=== PATIENT | male | born 1970 | race Caucasian/White ===

== ENCOUNTER 2018-05-05 16:29 | Emergency (ER) | payer OTHER ==
[~2018-05-05] VITALS: Ht 162.6 cm; Wt 97.2 kg
[2018-05-05 16:33] VITALS: BP 158/105
--- NOTE | 2018-05-05 16:40 | NUR ---
PT WHEEL CHAIR ASSISTED TO BED 9, REPORT GIVEN TO CHRIS ELIZONDO
--- NOTE | 2018-05-05 16:45 | NUR ---
PATIENT PRESENTS TO ED WITH C/O RT FOOT PAIN, NAUSEA S/P INJURED ANKLE ON 04/27/2018; GIVEN TORADOL LAST SUNDAY AT [facility] WITH NO RELIEF HX; DENIES RX; "CAN'T REMEMBER" PAIN MEDICATION; DENIES V/D; SKIN IS PINK/WARM/DRY; AAOX4 WITH EVEN AND STEADY GAIT; LUNGS CLEAR BL; HR EVEN AND REGULAR; PT DENIES ANY FEVER, CP, SOB, OR COUGH AT THIS TIME; PATIENT STATES PAIN OF 10/10 AT THIS TIME; VSS; PATIENT POSITIONED FOR COMFORT; HOB ELEVATED; BEDRAILS UP X2; BED DOWN. ER MD MADE AWARE OF PT STATUS.
[2018-05-05] MEDS ORDERED: KETOROLAC 30 MG/ML VIAL IVP ONE (17:20)
[2018-05-05] MEDS ORDERED: AMPICILLIN/SULBACTAM 3 GM in NACL 0.9% 100 ML IV ONE (17:20)
--- NOTE | 2018-05-05 17:30 | NUR ---
AWARE PT REFUSED LABS/URINE
[2018-05-05] MEDS ORDERED: AMPICILLIN/SULBACTAM 3 GM VIAL ONE (17:35)
--- NOTE | 2018-05-05 17:50 | NUR ---
PT REFURSED TORADOL IV---STATED , HE HAS HAD IT BEFORE WITH NO PAIN RELIEF. MD NOTIFIED, WILL CHANGE ANALGESIC
[2018-05-05] MEDS ORDERED: MORPHINE SULFATE 4 MG/ML SYR IVP ONE (17:55)
--- NOTE | 2018-05-05 19:11 | NUR ---
REPORT RECIEVED FROM LACIE RN
[2018-05-05 20:35] VITALS: BP 131/86
--- NOTE | 2018-05-05 20:35 | NUR ---
Patient discharged with v/s stable. Written and verbal after care instructions given and explained. Patient alert, oriented and verbalized understanding of instructions. Ambulatory with steady gait. All questions addressed prior to discharge. ID band removed. Patient advised to follow up with PMD. Rx of Keflex and Naprosyn given. Patient educated on indication of medication including possible reaction and side effects. Opportunity to ask questions provided and answered.
== END 2018-05-05 20:35 | disposition home or self-care (01) ==
LOC: MED 16:29
DX: L03.115 Cellulitis of right lower limb (principal)
CPT/HCPCS: 73630; 96365; 96375; 99284; J0295; J2270; J1885

== ENCOUNTER 2018-08-08 03:08 | Emergency (ER) | payer OTHER ==
[~2018-08-08] VITALS: Ht 170.2 cm; Wt 98.9 kg
[2018-08-08 03:09] VITALS: BP 149/97
[2018-08-08 04:58] VITALS: BP 146/89
== END 2018-08-08 04:58 | disposition home or self-care (01) ==
LOC: MED 03:08
DX: K62.5 Hemorrhage of anus and rectum (principal); R03.0 Elevated blood-pressure reading, without diagnosis of hypertension
CPT/HCPCS: 74022; 99284

== ENCOUNTER 2019-03-27 01:17 | Emergency (ER) | payer OTHER ==
[~2019-03-27] VITALS: Ht 170.2 cm; Wt 95.3 kg
[2019-03-27 01:28] VITALS: BP 156/77
--- NOTE | 2019-03-27 01:31 | NUR ---
PT AMBULATED TO BED 4. Addendum: 03/27/19 at 0131 by MEDJ PT AMBULATED TO BED 2.
--- NOTE | 2019-03-27 01:45 | NUR ---
48 YO M BIB SELF C/O 10/10 THROBBING PAIN, REDNESS, WARMTH AND EDEMA TO LOWER LEFT LEG. PT STATES REDNESS STARTED FROM THE LEFT ANKLE AND HAS SPREAD UP CALF X ABOUT 3 DAYS. AREA IS WARM AND TENDER TO TOUCH WITH BRIGHT RED SHINY SKIN. PT STATES HE POSSIBLY "GOT BIT BY SOMETHING". PT ALSO C/O NAUSEA AND GENERAL MALAISE. -- PT APPEARS UNCOMFORTABLE. IS AWAKE, ALERT, CALM, COOPERATIVE. BEHAVIOR APPROPRIATE. -- SKIN PINK, DRY, WARM. BREATHING EVEN, UNLABORED. VSS. PMH-- DENIES RX-- DENIES
--- NOTE | 2019-03-27 01:48 | NUR ---
DR. SWIFT EVALUATING PT BEDSIDE
[2019-03-27] MEDS ORDERED: CLINDAMYCIN 900 MG in DEXTROSE 5% 100 ML IV ONE (01:55)
[2019-03-27] MEDS ORDERED: ONDANSETRON 4 MG/2 ML VIAL IVP ONE (02:10)
[2019-03-27] MEDS ORDERED: NACL 0.9% 1,000 ML IV ONE (02:10)
[2019-03-27] MEDS ORDERED: MORPHINE SULFATE 4 MG/ML SYR IVP ONE (02:10)
--- NOTE | 2019-03-27 02:10 | NUR ---
LAB AT BEDSIDE.
[2019-03-27] MEDS ORDERED: CLINDAMYCIN 900 MG/6 ML VIAL IV ONE (02:15)
[2019-03-27 02:20] LABS: BASOPHILS # (AUTO) 0.1 K/uL (0.00-0.22); BASOPHILS % (AUTO) 0.7 % (0.0-2.0); EOSINOPHILS # (AUTO) 0.1 K/uL (0-0.4); EOSINOPHILS % (AUTO) 1.6 % (0.0-4.0); HEMATOCRIT 36.2 % (36-52); HEMOGLOBIN 12.2 g/dL (12.0-18.0); LYMPHOCYTES # (AUTO) 1.1 K/uL (2.0-11.5); LYMPHOCYTES % (AUTO) 14.2 % (20.5-51.1); MEAN CORPUSCULAR HEMOGLOBIN 28 pg (27-31); MEAN CORPUSCULAR HGB CONC 34 g/dL (33-37); MEAN CORPUSCULAR VOLUME 83.4 fL (80-94); MONOCYTES # (AUTO) 1.1 K/uL (0.8-1.0); MONOCYTES % (AUTO) 14.6 % (1.7-9.3); NEUTROPHILS # (AUTO) 5.1 K/uL (1.8-7.7); NEUTROPHILS % (AUTO) 68.9 % (42.2-75.2); PLATELET COUNT (AUTO) 235 K/uL (140-450); RED BLOOD CELL COUNT(AUTO) 4.35 MIL/uL (4.20-6.10); RED CELL DISTRIBUTION WIDTH 15.7 % (11.6-13.7); WHITE BLOOD COUNT (AUTO) 7.4 K/uL (4.8-10.8)
--- NOTE | 2019-03-27 02:30 | NUR ---
PT RECEIVED 2 MG ZOFRAN IVP FOR NAUSEA AND 4 MG MORPHINE IVP FOR 10/10 PAIN. WILL CONTINUE TO MONITOR.
[2019-03-27 02:58] LABS: ANION GAP 12.2 (8-16); CARBON DIOXIDE 28.8 mmol/L (21-32); CREATININE 1.3 mg/dL (0.7-1.3)
[2019-03-27 03:00] LABS: ALBUMIN 3.5 g/dL (3.4-5.0); TOTAL BILIRUBIN 0.4 mg/dL (0.0-1.0)
--- NOTE | 2019-03-27 03:15 | NUR ---
ZOFRAN AND MORPHINE EFFECTIVE. PT SLEEPING. DENIES PAIN, NAUSEA.
--- NOTE | 2019-03-27 04:28 | NUR ---
Patient appears to be resting comfortably in bed. Vital Signs within normal limits. Respirations even and unlabored. Awaiting US results.
[2019-03-27 05:31] VITALS: BP 110/46
--- NOTE | 2019-03-27 05:31 | NUR ---
Patient discharged with v/s stable. Written and verbal after care instructions given and explained. Patient alert, oriented and verbalized understanding of instructions. Ambulatory with steady gait. All questions addressed prior to discharge. ID band removed. Patient advised to follow up with PMD in 1-2 days and return if symptoms worsen. Rx of [place], Keflex, and Bactrim DS given. Patient educated on indication of medication including possible reaction and side effects. Opportunity to ask questions provided and answered.
== END 2019-03-27 05:31 | disposition home or self-care (01) ==
LOC: MED 01:17
DX: M79.605 Pain in left leg (principal)
CPT/HCPCS: 36415; 80053; 83605; 85025; 87040; 93971; 96365; 96375; 99284; J2270; J2405; J3490; J7030; Q0092

== ENCOUNTER 2019-08-15 01:28 | Emergency (ER) | payer OTHER ==
[~2019-08-15] VITALS: Ht 170.2 cm; Wt 94.8 kg
[2019-08-15 01:30] VITALS: BP 167/90
[2019-08-15 03:09] VITALS: BP 167/90
== END 2019-08-15 03:09 | disposition home or self-care (01) ==
LOC: MED 01:28
DX: H92.01 Otalgia, right ear (principal)
CPT/HCPCS: 99283

== ENCOUNTER 2019-12-05 17:49 | Emergency (ER) | payer OTHER ==
[~2019-12-05] VITALS: Ht 168.9 cm; Wt 93.0 kg
[2019-12-05 17:53] VITALS: BP 111/67
--- NOTE | 2019-12-05 18:30 | NUR ---
44 Y/O MALE BIB SELF FOR RIGHT TOE PAIN. PAIN IS A 4/10 AT THIS TIME AND IS ABLE TO AMBULATE. CAPILLARY REFILL <3 SECONDS; SKIN WARM TO TOUCH; SLIGHT FACIAL GRIMACING NOTED. ERMD MADE AWARE OF STATUS. SIDE RAILSX1. HX- DENIES RX:DENIES NKDA
--- NOTE | 2019-12-05 18:32 | NUR ---
PATIENT AMBULATED TO CHAIR A.
--- NOTE | 2019-12-05 18:36 | NUR ---
PA EVALUATING PATIENT AT THIS TIME.
[2019-12-05] MEDS ORDERED: KETOROLAC 60 MG/2 ML VIAL IM ONE (18:40)
[2019-12-05 19:22] VITALS: BP 111/67
--- NOTE | 2019-12-05 19:22 | NUR ---
Patient discharged with v/s stable. Written and verbal after care instructions given and explained. Patient alert, oriented and verbalized understanding of instructions. Ambulatory with steady gait. All questions addressed prior to discharge. ID band removed. Patient advised to follow up with PMD. Rx of INDOMETHACIN; KEFLEX; COLCHICINE given. Patient educated on indication of medication including possible reaction and side effects. Opportunity to ask questions provided and answered.
== END 2019-12-05 19:22 | disposition home or self-care (01) ==
LOC: MED 17:49
DX: M79.671 Pain in right foot (principal); L53.8 Other specified erythematous conditions
CPT/HCPCS: 96372; 99283; J1885

== ENCOUNTER 2020-04-17 05:49 | Emergency (ER) | payer OTHER ==
[~2020-04-17] VITALS: Ht 170.2 cm; Wt 97.5 kg
[2020-04-17 05:54] VITALS: BP 130/78
[2020-04-17] MEDS ORDERED: KETOROLAC 60 MG/2 ML VIAL IM ONE (06:00)
[2020-04-17 06:28] VITALS: BP 130/78
== END 2020-04-17 06:30 | disposition home or self-care (01) ==
LOC: MED 05:49
DX: L03.115 Cellulitis of right lower limb (principal)
CPT/HCPCS: 96372; 99283; J1885

== ENCOUNTER 2021-07-16 20:21 | Emergency (ER) | payer OTHER ==
[~2021-07-16] VITALS: Ht 170.2 cm; Wt 90.7 kg
[2021-07-16 20:30] VITALS: BP 150/90
--- NOTE | 2021-07-16 20:30 | NUR ---
TO BED AMBULATORY
--- NOTE | 2021-07-16 21:00 | NUR ---
51 YO M BIB SELF WITH C/C OF R FOOT PAIN 10/10, BURNING AND THROBBING. BEGANS AT BOTTOM OF FOOT RADIATES UP FOOT. FOOT IS WARM TO TOUCH AND RED, UNABLE TO WIGGLE TOES. DENIES TAKING MEDICATION FOR PAIN. +N. PMH: CELLULITIS NKA
--- NOTE | 2021-07-16 23:20 | NUR ---
Dr. Mayo examining patient.
[2021-07-16] MEDS ORDERED: KETOROLAC 30 MG/ML VIAL IM ONE (23:25)
[2021-07-16] MEDS ORDERED: methylPREDNISolone SS 60 MG in WATER STERILE 1 ML IM ONE (23:25)
[2021-07-16] MEDS ORDERED: HYDROcodone/APAP 5/325 MG 1 TAB TAB PO ONE (23:25)
[2021-07-16] MEDS ORDERED: IBUP-2213 PO (23:58)
[2021-07-16] MEDS ORDERED: ACET-8386 PO (23:58)
[2021-07-17 00:03] VITALS: BP 148/87
== END 2021-07-17 00:04 | disposition home or self-care (01) ==
LOC: MED 20:21
DX: M10.071 Idiopathic gout, right ankle and foot (principal); Z79.899 Other long term (current) drug therapy
CPT/HCPCS: 73630; 99283